=== PATIENT | male | born 1980 | race Caucasian/White ===

== ENCOUNTER 2019-07-08 17:10 | Emergency (ER) | payer BC ==
[2019-07-08 18:46] VITALS: BP 108/73
--- NOTE | 2019-07-08 19:16 | UC ---
Skin Complaint HPI - HPI Summary HPI Summary: Pt presents with c/o of painful nodule on right side of nostril. Pt states that he has had a similar occurrence in the same spot on his face over the last "few years". Pt has used doxycycline, metrogel topical, and mupircin with some improvement of symptoms. states that he has drained site at home but decline incision and drainage today. - History of Current Complaint Chief Complaint: [employer]kin Time Seen by Provider: 07/08/19 18:56 Stated Complaint: SKIN ISSUE Hx Obtained From: Patient Onset/Duration: Gradual Onset, Lasting Days, Still Present Skin Exposure Onset/Duration: Days Ago Timing: Constant Onset Severity: Mild Current Severity: Moderate Pain Intensity: 0 Location: Face - right ricci eof nose Character: Redness, Raised, Painful Aggravating Factor(s): Touch Alleviating Factor(s): Other - antibiotics Associated Signs & Symptoms: Positive: Tenderness - Allergy/Home Medications Allergies/Adverse Reactions: Allergies Allergy/AdvReac Type Severity Reaction Status Date / Time amoxicillin Allergy near Verified 07/08/19 18:47 anaphylaxis Penicillins Allergy Unknown Verified 07/08/19 18:47 Reaction Details Home Medications: Home Medications Ascorbic Acid TAB* [Vitamin C TAB*] 1,000 mg PO DAILY 07/08/19 [History Confirmed 07/08/19] Atorvastatin* [Lipitor 10 MG*] 5 mg PO DAILY 07/08/19 [History Confirmed ] Losartan Potassium 25 mg PO DAILY 07/08/19 [History Confirmed 07/08/19] Magnesium 1,000 mg PO DAILY 07/08/19 [History Confirmed 07/08/19] Vitamin B Complex CAP* [B Complex CAP*] 1 cap PO DAILY 07/08/19 [History Confirmed 07/08/19] Vitamin E Acetate [Vitamin E] 3,000 unit PO DAILY 07/08/19 [History Confirmed ] PMH/Surg Hx/FS Hx/Imm Hx Previously Healthy: Yes - Surgical History Surgical History: Yes Surgery Procedure, Year, and Place: tonsils, nasal septoplasty, wisdom teeth extraction x 4, ne[place] - Family History Known Family History: Positive: Cardiac Disease - Social History 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 [employer] Alcohol Use: Occasionally Substance Use Type: None Smoking Status (MU): Never Smoked Tobacco Have You Smoked in the Last Year: No - Immunization History Most Recent Tetanus Shot: UTD Vaccination Up to Date: Yes Review of Systems All Other Systems Reviewed And Are Negative: Yes Constitutional: Positive: Negative Skin: Positive: Other - mild erytheam to right side of nose/cheek, with palpable , moveable round lump Eyes: Positive: Negative ENT: Positive: Negative Respiratory: Positive: Negative Cardiovascular: Positive: Negative Gastrointestinal: Positive: Negative Genitourinary: Positive: Negative Motor: Positive: Negative Neurovascular: Positive: Negative Musculoskeletal: Positive: Negative Neurological/Mental Status: Positive: Negative Psychological: Positive: Negative Is Patient Immunocompromised?: No Physical Exam Triage Information Reviewed: Yes Appearance: Well-Appearing Vital Signs: Initial Vital Signs Temp 98.4 F 07/08/19 18:36 Pulse 72 07/08/19 18:36 Resp 18 07/08/19 18:36 BP 108/73 07/08/19 18:36 Pulse Ox 100 07/08/19 18:36 Vital Signs Reviewed: Yes Eye Exam: Normal ENT Exam: Normal ENT: Positive: Hearing grossly normal Neck exam: Normal Respiratory: Positive: No respiratory distress Musculoskeletal Exam: Normal Neurological Exam: Normal Psychological Exam: Normal Skin Exam: Other - mild erythema to right ricci eof nose, palpable moveable marble like mass, Course/Dx - Course Course Of Treatment: Pt was recommended to f/u with home visits nurse. Pt was offered incision and drainage at but declined - Differential Diagnoses - Skin Complaint Differential Diagnoses: Abscess, MRSA - Diagnoses Provider Diagnosis: Cystic acne vulgaris Discharge ED - Sign-Out/Discharge Documenting (check all that apply): Patient Departure All imaging exams completed and their final reports reviewed: No Studies - Discharge Plan Condition: Stable Disposition: HOME Prescriptions: DOXYcycline CAP(*) [DOXYcycline 100MG CAP(*)] 100 mg PO Q12H #20 cap predniSONE 10 mg TAB [Deltasone 10 MG TAB*] 30 mg PO DAILY #12 tab Patient Education Materials: Cyst (ED) Referrals: Nelda Lopez PA [Primary Care Provider] - If Needed Additional Instructions: Please follow up with your PCP as needed. Please seek care at a home visits nurse of your choice. - Billing Disposition and Condition Condition: STABLE Disposition: Home
== END 2019-07-08 19:26 | disposition home or self-care (01) ==
LOC: UCCORT 17:10
DX: L70.0 Acne vulgaris (principal); Z88.0 Allergy status to penicillin
CPT/HCPCS: 99202; G0463